=== PATIENT | female | born 1970 | race Caucasian/White ===

== ENCOUNTER 2017-08-23 14:39 | Outpatient (CLI) | payer BC ==
--- NOTE | 2017-08-23 15:46 | MRI ---
MRI CERVICAL SPINE NONCONTRAST 08/23/17 HISTORY: Neck pain with left arm radiculopathy. FINDINGS: Vertebral body heights and alignment are maintained. Bone marrow signal is within normal limits. Spin al cord throughout the cervical levels has a normal appearance without evidence of compression, expan nikki, or abnormal signal. Very mild posterior disc bulges are present at the C4-5, C5-6, and C6-7 levels. No significant centra l canal or foraminal stenoses are evident. IMPRESSION: Mild degenerative changes of the cervical spine. No focal disc herniation or nerve root compression a re apparent. POS: [facility]
--- NOTE | 2017-08-23 17:09 | MRI ---
MRI LUMBAR SPINE NONCONTRAST: 08/23/17 HISTORY: Low back pain with radiculopathy. Prior surgery. FINDINGS: radiographs are not available for direct correlation. Therefore the lowest lumbar type vertebra will be designated as L5 with the remainder numbered accordingly. The conus medullaris has a normal appear ance. Vertebral body heights are maintained. At the upper to mid levels of the lumbar spine, the cent ral canal and neural foramina are patent. L4-5: There is disc space narrowing and minimal degenerative retrolisthesis. Discogenic end plate ricki nges are most pronounced at this level. There is operative posterior decompression. Thecal sac remain s patent. Degenerative changes result in moderate bilateral foraminal stenoses, right greater than le ft. L5-S1: Osteophytosis involves the facets. The central canal and neural foramina are patent. IMPRESSION: Postoperative changes of the lower lumbar spine. The thecal sac remains patent. Degenerative changes at the postoperative level result in significant stenosis at each neural foramen. Clinical correlatio n regarding each L4 dermatome is required. POS: [facility]
== END 2017-08-23 14:40 | disposition home or self-care (01) ==
LOC: TBSIIMAG 14:39
PROVIDERS: ATTEND Nurse Practitioner Family
DX: M47.26 Other spondylosis with radiculopathy, lumbar region (principal); M47.22 Other spondylosis with radiculopathy, cervical region; M99.83 Other biomechanical lesions of lumbar region; Z98.890 Other specified postprocedural states
CPT/HCPCS: 72141; 72148

== ENCOUNTER 2018-07-15 08:52 | Outpatient (CLI) | payer BC ==
--- NOTE | 2018-07-15 10:42 | RAD ---
LUMBAR SPINE 4 VIEWS: COMPARISON: Prior exam dated 06/07/2016. FINDINGS: There is postsurgical change of a laminotomy involving the L4-5 level. There is advanced degenerativ e disk disease at L4-5 with mild retrolisthesis which is stable to the prior exam. No acute fracture or subluxation is evident. No definite abnormal translational motion is evident. IMPRESSION: Stable advanced degenerative disk disease at L4-5. POS: [facility]
== END 2018-07-15 08:53 | disposition home or self-care (01) ==
LOC: RAD 08:52
PROVIDERS: ATTEND Specialist
DX: M51.16 Intervertebral disc disorders with radiculopathy, lumbar region (principal)
CPT/HCPCS: 72120

== ENCOUNTER 2023-01-10 18:42 | Emergency (ER) | payer BC ==
[~2023-01-10 18:42] MED LIST: Iopamidol-370 76% 500 ML MDV (1 ML CHARGE) ONE
[2023-01-10 19:03] LABS: #Eosinphils 0.1 thou/uL (0.0-0.7); #Monocytes 0.6 thou/uL (0.11-0.59); #Neutrophils 5.7 thou/uL (1.40-6.50); %Basophils 0.4 % (0.0-1.0); %Eosinophils 1.2 % (0.0-10.0); %Lymphocytes 23.4 % (21.0-51.0); %Monocytes 7.3 % (0.0-10.0); %Neutrophils 67.6 % (42.0-75.0); Hemoglobin 11.8 g/dL (12.0-16.0); Mean Corpuscular HGB CONC 32.9 g/dL (32.0-36.0); Mean Corpuscular Hemoglobin 30.8 pg (27.0-31.0); Mean Corpuscular Volume 93.7 fl (78.0-98.0); Mean Platelet Volume 10.8 fL (7.4-10.4); Platelet Count 274 10x3/uL (130-400); RBC Distribution Width 12.4 % (11.5-14.5); Red Blood Cell (RBC) Count 3.83 mill/uL (4.20-5.40); White Blood Cell (WBC) Count 8.4 10x3/uL (4.8-10.8)
[2023-01-10 19:29] LABS: Albumin 4.4 g/dL (3.5-5.0); Calcium 9.5 mg/dL (7.8-10.44); Chloride 105 mmol/L (98-107); Glucose 94 mg/dL (70-105); Potassium 3.9 mmol/L (3.5-5.1); Sodium 139 mmol/L (136-145)
[2023-01-10 19:42] LABS: Globulin 2.8 g/dL (2.4-3.5); Protein, Total 7.2 g/dL (6.0-8.3)
[2023-01-10 19:43] LABS: Bilirubin, Total 0.4 mg/dL (0.2-1.2); Carbon Dioxide 25 mmol/L (22-29)
[2023-01-10 19:44] LABS: Alkaline Phosphatase 30 U/L (40-110)
[2023-01-10 19:45] LABS: BUN (Urea Nitrogen) 11 mg/dL (9.8-20.1); Calc. Creatinine Clearance 0 mL/min (70-130); Estimated GFR 69
[2023-01-10 19:47] LABS: ALT (SGPT) 9 U/L (8-55); AST (SGOT) 15 U/L (5-34)
[2023-01-10 21:09] LABS: Anion Gap 16 mmol/L (10-20)
[2023-01-10 21:29] LABS: Bacteria/HPF None Seen HPF (None Seen); Bilirubin Negative (Negative); Blood, Urine Negative (Negative); CAUTI Indications for Culture Dysuria,urgency,freq; Clarity Clear (Clear); Glucose, Urine (Dipstick) Normal (Negative); Ketone, Urine Negative (Negative); Leukocyte Negative Leu/uL (Negative); Nitrite Negative (Negative); Protein, Urine (Dipstick) Negative (Neg-Trace); RBC/HPF 0-3 HPF (0-3); Specific Gravity, Urine 1.017 (1.002-1.036); Squamous Epithelial 0-3 HPF (0-3); Urobilinogen Normal mg/dL (Less than 2); WBC/HPF 0-3 HPF (0-3); pH, Urine 5.5 (5.0-9.0)
[2023-01-10 21:34] LABS: Pregnancy Test - Urine (BHCG) Negative (Negative); Pregu Control Background? CLEAR/WHITE (CLR/WHITE); Pregu Control Bar Appear? YES (CONTROL BAR); Specific Gravity 1.017 (1.002-1.036); Urine Culture Reflex No No
[2023-01-10] MEDS ORDERED: Ketorolac Tromethamine 30 MG/ML VIAL ONE (21:59)
== END 2023-01-10 23:01 | disposition home or self-care (01) ==
LOC: ERS 18:42
DX: R10.32 Left lower quadrant pain (principal); I10 Essential (primary) hypertension
CPT/HCPCS: 36415; 74177; 80053; 81001; 81025; 83690; 85025; 96374; J1885; Q9967